=== PATIENT | male | born 1990 | race Two or more races ===

== ENCOUNTER 2018-08-11 07:46 | Outpatient (CLI) | payer OTHER ==
[~2018-08-11] VITALS: Ht 170.2 cm; Wt 68.0 kg
[~2018-08-11 07:46] MED LIST: FLONASE ALLERG9.9 ML NS; GILTUSS TR TAB1 EACH PO; MAXITROL EYE DRO5 ML OP; TOBREX5 ML OP; ZYRTEC10 MG PO
[2018-08-11] MEDS ORDERED: MEDROL4 MG PO (11:16)
[2018-08-11] MEDS ORDERED: MELATONIN10 M2 PO (11:17)
== END 2018-08-11 08:00 | disposition home or self-care (01) ==
LOC: OFIC 805 07:46
DX: H93.11 Tinnitus, right ear (principal); J31.0 Chronic rhinitis

== ENCOUNTER 2018-09-01 08:03 | Outpatient (CLI) | payer OTHER ==
[~2018-09-01] VITALS: Ht 152.4 cm; Wt 68.0 kg
[~2018-09-01 08:03] MED LIST changes: +MEDROL4 MG PO; +MELATONIN10 M2 PO
== END 2018-09-01 08:20 | disposition home or self-care (01) ==
LOC: OFIC 805 08:03
DX: J31.0 Chronic rhinitis (principal); H93.11 Tinnitus, right ear

== ENCOUNTER 2018-10-01 08:12 | Outpatient (CLI) | payer OTHER ==
[~2018-10-01] VITALS: Ht 152.4 cm; Wt 68.0 kg
== END 2018-10-01 08:15 | disposition home or self-care (01) ==
LOC: OFIC 805 08:12
DX: J31.0 Chronic rhinitis (principal); H93.13 Tinnitus, bilateral; H61.23 Impacted cerumen, bilateral; M26.69 Other specified disorders of temporomandibular joint

== ENCOUNTER 2018-10-12 07:28 | Outpatient (CLI) | payer OTHER | END 2018-10-12 07:33 | disposition home or self-care (01) | LOC: LAB 07:28 | DX: H93.13 Tinnitus, bilateral (principal) ==

== ENCOUNTER 2018-10-12 09:09 | Outpatient (CLI) | payer OTHER | END 2018-10-12 17:00 | disposition home or self-care (01) | LOC: MRI 09:09 | DX: H93.13 Tinnitus, bilateral (principal) | CPT/HCPCS: 70553 ==

== ENCOUNTER 2018-10-29 07:51 | Outpatient (CLI) | payer OTHER ==
[~2018-10-29] VITALS: Ht 152.4 cm; Wt 68.0 kg
== END 2018-10-29 08:05 | disposition home or self-care (01) ==
LOC: OFIC 805 07:51
DX: H93.11 Tinnitus, right ear (principal); M26.69 Other specified disorders of temporomandibular joint

== ENCOUNTER 2019-04-06 15:03 | Emergency (ER) | payer OTHER ==
[~2019-04-06] VITALS: Ht 170.2 cm; Wt 68.0 kg
[2019-04-06] MEDS ORDERED: LIPO-FLAVONOID1 EACH (15:23)
== END 2019-04-06 19:15 | disposition home or self-care (01) ==
LOC: ER 15:03
DX: R53.81 Other malaise (principal); E86.0 Dehydration

== ENCOUNTER 2019-12-06 10:07 | Outpatient (CLI) | payer OTHER ==
[~2019-12-06 10:07] MED LIST changes: +LIPO-FLAVONOID1 EACH
== END 2019-12-06 10:17 | disposition home or self-care (01) ==
LOC: LAB 10:07
PROVIDERS: ATTEND General Practice
DX: Z00.8 Encounter for other general examination (principal); Z13.6 Encounter for screening for cardiovascular disorders